=== PATIENT | male | born 1965 | race Caucasian/White ===

== ENCOUNTER 2020-10-16 02:27 | Emergency (ER) | payer MEDICAID ==
[~2020-10-16] VITALS: Ht 172.7 cm; Wt 77.0 kg
[2020-10-16] MEDS ORDERED: ketorolac tromethamine 15mg/ml inj. IM ONE (02:35)
[2020-10-16 03:06] VITALS: BP 124/82
== END 2020-10-16 03:05 | disposition home or self-care (01) ==
LOC: ER 02:27
DX: M54.5 Low back pain (principal); G89.29 Other chronic pain; Z59.0 Homelessness
CPT/HCPCS: 96372; 99283; J1885

== ENCOUNTER 2020-10-17 00:11 | Emergency (ER) | payer MEDICAID | END 2020-10-17 01:47 | disposition left against medical advice (07) | LOC: ER 00:11 | DX: L98.9 Disorder of the skin and subcutaneous tissue, unspecified (principal); Z53.21 Procedure and treatment not carried out due to patient leaving prior to being seen by health care provider ==